=== PATIENT | female | born 1980 | race Asian ===

== ENCOUNTER 2023-01-06 15:13 | Emergency (ER) | payer SELFPAY ==
[2023-01-06 15:22] VITALS: BP 138/76
--- NOTE | 2023-01-06 15:46 | ED Physician Documentation ---
History of Present Illness - Stated complaint Stated Complaint: EAR SOUND - Chief complaint Chief Complaint: Heent - History obtained from History obtained from: Patient - History of Present Illness Timing: How many weeks ago (2) Pain level max: 0 Pain level now: 0 - Additonal information Additional information: 42-year-old female presents to the emergency department complaining of a buzzing sound in her left ear intermittently for the past 2 weeks. She states sometimes the volume of people talking to her is louder and quieter out of her left ear. No fevers. No chills. Does use Q-tips. No drainage. No vertigo. No sore throat. No rhinorrhea or congestion. No numbness or tingling. Review of Systems Constitutional: denies: Fever, Chills Respiratory: denies: Cough GI: denies: Vomiting, Diarrhea Skin: denies: Rash Neurologic: denies: Headache PD PAST MEDICAL HISTORY - Past Medical History Past Medical History: No - Present Medications Home Medications: Ambulatory Orders Medication Instructions Recorded Confirmed Neomycin/Polymyx/Hc Otic Drops 4 drops OT TID #10 ml 01/06/23 [Cortisporin Ear Susp] - Allergies Allergies/Adverse Reactions: Allergies Allergy/AdvReac Type Severity Reaction Status Date / Time No Known Drug Allergies Allergy Verified 01/06/23 15:18 - Social History Does the pt smoke?: No Smoking Status: Never smoker PD ED PE NORMAL - Vitals Vital signs reviewed: Yes - General General: Alert and oriented X 3, No acute distress - HEENT HEENT: Moist mucous membranes, Pharynx benign, Other (Bilateral tympanic membranes are normal. The left ear canal is mildly swollen, no drainage.) - Neck Neck: Supple, no meningeal sign - Cardiac Cardiac: RRR - Respiratory Respiratory: No respiratory distress, Clear bilaterally - Derm Derm: Warm and dry - Neuro Neuro: Alert and oriented X 3 Results - Vitals Vitals: Vital Signs - 24 hr 01/06/23 15:18 Temperature 36.5 C Heart Rate 69 Respiratory 16 Rate Blood Pressure 138/76 H O2 Saturation 100 Oxygen O2 Source Room air PD Medical Decision Making - ED course Complexity details: considered differential, d/w patient, d/w family ED course: 42-year-old female with mild swelling in the left ear canal, will place on Cortisporin otic for otitis externa. She is also complaining of what sounds like intermittent tinnitus. Recommend she follow-up with ENT for this. Patient is well-appearing, nontoxic. Afebrile. No emergency medical condition at this time. Patient counseled regarding signs and symptoms for which I believe and urgent re-evaluation would be necessary. Patient with good understanding of and agreement to plan and is comfortable going home at this time This document was made in part using voice recognition software. While efforts are made to proofread this document, sound alike and grammatical errors may occur. Departure - Departure Disposition: 01 Home, Self Care Clinical Impression: Tinnitus Qualifiers: Laterality: left Qualified Code(s): H93.12 - Tinnitus, left ear Otitis externa Qualifiers: Otitis externa type: unspecified type Chronicity: acute Laterality: left Qualified Code(s): H60.502 - Unspecified acute noninfective otitis externa, left ear Condition: Good Instructions: Tinnitus, ED Otitis Externa Follow-Up: [facility] [Provider Group] Prescriptions: Neomycin/Polymyx/Hc Otic Drops [Cortisporin Ear Susp] 4 drops OT TID #10 ml Comments: Your prescription was sent to [facility] in [place]. Please follow-up with ENT for further care. It is recommended that you have a hearing test done as well. Please avoid putting anything into your ear other than the drops that you are prescribed. Discharge Date/Time: 01/06/23 16:02
== END 2023-01-06 16:02 | disposition home or self-care (01) ==
LOC: ED 15:13
DX: H60.502 Unspecified acute noninfective otitis externa, left ear (principal); H93.12 Tinnitus, left ear
CPT/HCPCS: 99281; 99283